=== PATIENT | female | born 1955 | race Two or more races ===

== ENCOUNTER 2017-11-17 07:24 | Day surgery (SDC) | payer OTHER ==
[~2017-11-17] VITALS: Ht 154.9 cm; Wt 58.2 kg
--- NOTE | ~2017-11-17 | OP ---
PATIENT NAME: JORDON HIGUERA MEDICAL RECORD: [id number] [facility]ATION:[facility] AD[facility]ION DATE: SURGEON: MERCEDEZ CORTES DO DATE OF OPERATION: 11/17/2017 PROCEDURE: Colonoscopy with polypectomy. INDICATIONS FOR PROCEDURE: Family history positive for colon cancer in her mother, lower abdominal pain, nausea. SCOPE: Olympus video pediatric colonoscope. MEDICATIONS: Propofol 340 mg IV per anesthesia. WITHDRAWAL TIME: 12 minutes. The patient's last colonoscopy was on 10/09/2012 with a single polyp removed. ESTIMATED BLOOD LOSS: None. COMPLICATIONS: None. FINDINGS: Informed consent was given. The patient was made comfortable with the above medication. After reaching an adequate level of sedation by slow IV push, the patient was placed on her left side. A digital rectal examination revealed medium sized external hemorrhoid, which was thrombosed. The endoscope was advanced under direct visualization through the rectum to the terminal ileum. The endoscope was slowly withdrawn and mucosa was carefully examined. The prep quality was excellent. There were multiple polyps visualized on today's examination. The first was located in the cecum, which was benign appearing sessile polyp measuring approximately 3 mm in diameter. It was removed using hot forceps in 1 piece and completely retrieved. In the ascending colon, there was another polyp, which was benign appearing and sessile and measured approximately 4-5 mm in diameter. It was removed using hot forceps in 1 piece and completely retrieved. In the transverse colon was a single benign appearing sessile polyp, which measured approximately 5 mm in diameter. It was removed using hot forceps in 1 piece and completely retrieved. Final polyp was located in the rectum. It was benign appearing sessile polyp, which measured approximately 3 mm in diameter and was removed using hot forceps in 1 piece and completely retrieved. There was evidence of mild to moderate diverticulosis involving the descending and sigmoid colon. There was no evidence of active diverticulitis. Retroflexion was performed in the rectum with visualization of grade I internal hemorrhoids without active bleeding. The endoscope was then withdrawn from the patient. The patient tolerated the procedure well and there were no complications. IMPRESSION: 1. Internal and external hemorrhoids with a thrombosed hemorrhoid externally. 2. Mild to moderate diverticulosis of the descending and sigmoid colon. 3. Multiple polyps as described above removed using hot forceps. PLAN AND RECOMMENDATIONS: 1. Discharge home when recovery parameters are met. 2. High fiber diet. 3. Continue current medications. OPERATIVE REPORT [id number] JORDON HIGUERA 4. Trial of dicyclomine 20 mg p.o. b.i.d. p.r.n. abdominal pain or cramps. 5. Consider surgical referral regarding the hemorrhoids. 6. Recall colonoscopy in 3 years based on family history of colon polyps and multiple polyps removed on today's examination. TRANSINT:[id number] Voice Confirmation ID: [id number] DOCUMENT ID: [id number] MERCEDEZ CORTES DO at 0911 CC: [id number] DICTATION DATE: 11/17/17 0954 [facility]VANCE SCOUT: 11/17/17 1120 [facility] 11/17/17 [id number] [place] [address]
[2017-11-17 07:57] LABS: BASOPHILS 0.3 % (0-2); EOSINOPHILS 2.7 % (0-7); HEMATOCRIT 46.3 % (36.0-48.0); HEMOGLOBIN 16.4 g/dL (12-16); IMMATURE GRANULOCYTES 0.4 % (0-5); LYMPHOCYTES 16.5 % (15-50); MCH 30.8 pg (26.0-34.0); MCHC 35.4 g/dL (31.0-37.0); MCV 86.9 fL (80.0-100.0); MEAN PLATELET VOLUME 10.3 fL (7.4-10.4); MONOCYTES 7.8 % (2-11); NEUTROPHILS 72.3 % (40-80); PLATELET COUNT 237 10x3/uL (130-400); RBC 5.33 10x6/uL (4.00-5.40); RDW 13.3 % (11.5-14.5); WBC 6.8 10x3/uL (4.8-10.8)
[2017-11-17 08:23] LABS: CALC OSMOLALITY 278 mosm/kg (275-300); CALCIUM 9.4 mg/dL (8.5-10.1); CARBON DIOXIDE 26.5 mmol/L (21.0-32.0); CHLORIDE - SERUM 103 mmol/L (98-107); CREATININE - SERUM 0.8 mg/dL (0.6-1.3); GLUCOSE 101 mg/dL (74-106); POTASSIUM - SERUM 4.2 mmol/L (3.5-5.1); SODIUM 140 mmol/L (136-145); UREA NITROGEN 12 mg/dL (7-18); eGFR NON AFRICAN AMERICAN 77 mL/min (90-120)
[2017-11-17] MEDS ORDERED: SYNTHROID25 MCG PO (09:03)
[2017-11-17] MEDS ORDERED: CELEBREX50 MG PO (09:04)
[2017-11-17 09:08] VITALS: BP 123/94; Ht 154.9 cm; Wt 58.2 kg
== END 2017-11-17 10:49 | disposition home or self-care (01) ==
LOC: D.OPS 07:24
PROVIDERS: Anesthesiology
DX: D12.2 Benign neoplasm of ascending colon (principal); D12.0 Benign neoplasm of cecum; D12.3 Benign neoplasm of transverse colon; K62.1 Rectal polyp; Z80.0 Family history of malignant neoplasm of digestive organs; K64.4 Residual hemorrhoidal skin tags; K64.8 Other hemorrhoids; E03.9 Hypothyroidism, unspecified; K21.9 Gastro-esophageal reflux disease without esophagitis; K57.30 Diverticulosis of large intestine without perforation or abscess without bleeding

== ENCOUNTER → 2020-12-21 12:51 | Outpatient (CLI) | payer OTHER ==
[~2020-12-21] VITALS: Ht 154.9 cm; Wt 56.8 kg
[~2020-12-21 12:51] MED LIST: CELEBREX50 MG PO; SYNTHROID25 MCG PO
[2020-12-21 13:36] VITALS: BP 123/65; Ht 154.9 cm; Wt 56.8 kg
--- NOTE | 2020-12-21 14:16 | NUR ---
1415 PROLIA INJECTION WAS GIVEN SQ AT 1405. COMPUTER DIFFICULTY DELAYED THE CORRECT TIME FROM BEING ENTERED. 1417 PT DENIES ANY PAIN IN RIGHT ARM. NO REDNESS, ITCHING OR RASH NOTED AT INJECTION SITE.
== END | disposition home or self-care (01) ==
LOC: D.OPS 12:51
PROVIDERS: ATTEND Nurse Practitioner
DX: M81.0 Age-related osteoporosis without current pathological fracture (principal)